=== PATIENT | male | born 1995 | race Caucasian/White ===

== ENCOUNTER 2016-10-28 19:25 | Emergency (ER) | payer OTHER ==
[2016-10-28] MEDS ORDERED: HYDROcod/ACET 5/325 Prepack 6 PO STA (22:02)
[2016-10-28] MEDS ORDERED: CLINDAMYCIN 150 MG CAPSULE PO STA (22:02)
[2016-10-28] MEDS ORDERED: HYDROcod/ACET 5/325 Prepack 6 PO ONE (22:10)
[2016-10-28] MEDS ORDERED: CLINDAMYCIN 150 MG CAPSULE PO ONE (22:11)
== END 2016-10-28 22:36 | disposition home or self-care (01) ==
DX: K04.7 Periapical abscess without sinus (principal)
CPT/HCPCS: 99283; A9270